=== PATIENT | male | born 1950 | race Caucasian/White ===

== ENCOUNTER 2018-11-29 05:53 | Day surgery (SDC) | payer MEDICARE ==
[2018-11-27 12:51] LABS: BASOPHILS % (AUTO) 0.6 % (0.0-5.0); EOSINOPHILS % (AUTO) 2.3 % (0.0-8.0); LYMPHOCYTES % (AUTO) 27.9 % (21.0-51.0); MEAN CORPUSCULAR HEMOGLOBIN 31.9 pg (27.0-33.0); MEAN CORPUSCULAR HGB CONC 34.1 g/dL (32.0-36.0); MEAN CORPUSCULAR VOLUME 93.6 fL (79-99); MONOCYTES % (AUTO) 7.7 % (3.0-13.0); NEUTROPHILS % (AUTO) 61.5 % (40.0-77.0); NUCLEATED RED BLOOD CELLS 0.1 % (0.0-0.19); PLATELET COUNT (AUTO) 167 K/uL (130-400); RED BLOOD CELL COUNT(AUTO) 5.24 MIL/uL (4.50-6.20); RED CELL DISTRIBUTION WIDTH 13.1 % (11.0-15.5); WHITE BLOOD COUNT (AUTO) 5.3 K/uL (4.8-10.8)
[2018-11-27 12:57] LABS: APPEARANCE,URINE Clear (CLEAR); BILIRUBIN,URINE Negative (NEGATIVE); COLOR,URINE Yellow (YELLOW); GLUCOSE, URINE (UA) Negative (NEGATIVE); KETONES,URINE Negative (NEGATIVE); LEUKOCYTE ESTERASE ,URINE Negative (NEGATIVE); NITRATE,URINE Negative (NEGATIVE); OCCULT BLOOD,URINE Negative (NEGATIVE); PROTEIN,URINE Negative (NEGATIVE)
[2018-11-27 13:00] LABS: CREATININE 1.1 mg/dL (0.5-1.5)
[2018-11-27 13:05] LABS: INR 0.98 (0.85-1.15); PARTIAL THROMBOPLASTIN TIME 28.7 SEC (26.3-35.5); PROTHROMBIN TIME 10.3 SEC (9.6-11.6)
[2018-11-27 13:08] VITALS: BP 169/90
[~2018-11-29] VITALS: Ht 182.9 cm; Wt 89.4 kg
[2018-11-29] VITALS (11 sets, daily range): BP systolic 125–158; BP diastolic 78–93
[~2018-11-29 05:53] MED LIST: ASPI-555 PO; LISI10TA7 PO; MULT1CAP PO; NIAC500T22 PO; SODIUM CHLORIDE 0.9% 500ML 500 ML IV SCH
[2018-11-29] MEDS ORDERED: SODIUM CHLORIDE 0.9% 1000ML 1,000 ML IV ONE (06:09)
[2018-11-29] MEDS ORDERED: NITROGLYCERIN 5 MG/ML 10 ML VIAL IV ONE (07:25)
[2018-11-29] MEDS ORDERED: IOHEXOL-350 50ML VIAL IV ONE ×2 (07:25→08:26)
[2018-11-29] MEDS ORDERED: LIDOCAINE HCL 2% 20ML ONE (07:25)
[2018-11-29] MEDS ORDERED: IOHEXOL 350 MG/ML 100ML INFUS..BTL IV ONE (07:25)
[2018-11-29] MEDS ORDERED: MIDAZOLAM HCL 1 MG/ML 2ML VIAL ONE (08:03)
[2018-11-29] MEDS ORDERED: SODIUM CHLORIDE 0.9% 1000ML 1,000 ML IV SCH (08:49)
--- NOTE | 2018-11-29 09:20 | NUR ---
NOTE DR. CRABTREE HERE AT BEDSIDE, TALKED TO PT AND .
--- NOTE | 2018-11-29 09:45 | NUR ---
DIET PT TOLERATED DIET WELL, ASSISTED IN FEEDING PT.
[2018-11-29 09:57] LABS: MAGNESIUM 1.7 mg/dL (1.80-2.40)
--- NOTE | 2018-11-29 12:40 | NUR ---
LABS LAB RESULTS (LIPID PANEL, MAGNESIUM 1.70) SHOWED TO DR. CRABTREE. ORDERED TO GIVE PT 2 GRAMS OF MAGNESIUM IV X 1 DOSE.
[2018-11-29] MEDS ORDERED: MAGNESIUM 2GM PREMIX 50ML 50 ML IV SCH (13:00)
--- NOTE | 2018-11-29 13:00 | NUR ---
ACTIVITY PT ASSISTED TO BATHROOM, AMBULATED WITHOUT ANY PROBLEMS. CATH SITE TO RIGHT GROIN REMAINS SOFT, DRESSING DRY AND INTACT, NO OOZING NO HEMATOMA NOTED. VOIDED 600 ML CLEAR YELLOW URINE.
--- NOTE | 2018-11-29 13:00 | NUR ---
HEADACHE PT COMPLAINED OF SLIGHT HEADACHE, HEADACHE LESS AFTER AMBULATING. TOLD PT WILL GET MED ORDER FROM MD, PER PT, TYLENOL WILL BE FINE.
--- NOTE | 2018-11-29 13:06 | NUR ---
MAGNESIUM MAGNESIUM 2GM IV STARTED BY Khadijah COLEMAN RN. PT TOLERATING WELL. Addendum: 11/29/18 at 1452 by RADHA CRABTREE RN RN ADDENDUM: MAGNESIUM INFUSING AT 25ML/HR.
--- NOTE | 2018-11-29 13:16 | NUR ---
ASSESS PT TOLERATING MG IV WELL, NO ADVERSE REACTIONS OR ANY SIGNS AND SYMPTOMS NOTED. WE WILL CONTINUE TO MONITOR.
[2018-11-29] MEDS ORDERED: ACETAMINOPHEN 325 MG TAB ONE (13:22)
[2018-11-29] MEDS ORDERED: ACETAMINOPHEN 325 MG TAB PO SCH (13:30)
--- NOTE | 2018-11-29 14:25 | NUR ---
REPORT REPORT GIVEN TO Breezy PRATT RN. PT SITTING POSITION ON BED. CATH SITE TO RIGHT GROIN REMAINS SOFT, NO OOZING NO HEMATOMA NOTED. PT STATES HIS HEADACHE IS RELIEVED. NO COMPLAINTS MADE.
== END 2018-11-29 15:16 | disposition home or self-care (01) ==
LOC: DAH 05:53
PROVIDERS: ATTEND Internal Medicine Cardiovascular Disease
DX: I25.10 Atherosclerotic heart disease of native coronary artery without angina pectoris (principal); Z79.01 Long term (current) use of anticoagulants; R00.1 Bradycardia, unspecified; Z79.899 Other long term (current) drug therapy
CPT/HCPCS: 36415 ×2; 71045; 80048; 80061; 81003; 83735; 85025; 85610; 85730; 93005; 93458; C1760; C1894; J1644; J2250; J3475; J3490 ×2; J7030; Q9965; Q9967 ×3; 99156; 99157